=== PATIENT | male | born 1960 | race Two or more races ===

== ENCOUNTER 2021-08-02 11:05 | Outpatient (CLI) | payer OTHER ==
[2021-08-04] MEDS ORDERED: COZAAR100 MG PO (09:46)
[2021-08-04] MEDS ORDERED: [UNRECOGNIZED DRUG - OTHER] PO (10:07)
== END 2021-08-02 11:15 | disposition home or self-care (01) ==
LOC: SONOGRAMA 11:05
PROVIDERS: ATTEND Specialist
DX: R19.09 Other intra-abdominal and pelvic swelling, mass and lump (principal)

== ENCOUNTER 2021-08-05 04:48 | Day surgery (SDC) | payer OTHER ==
[~2021-08-05 04:48] MED LIST: COZAAR100 MG PO; [UNRECOGNIZED DRUG - OTHER] PO
== END 2021-08-05 12:40 | disposition home or self-care (01) ==
LOC: CIR.AMB 04:48
PROVIDERS: ATTEND Specialist
DX: R59.0 Localized enlarged lymph nodes (principal); D59.0 Drug-induced autoimmune hemolytic anemia; Z20.822 Contact with and (suspected) exposure to COVID-19

== ENCOUNTER → 2021-09-06 07:04 | Outpatient (CLI) | payer OTHER | END | disposition home or self-care (01) | LOC: LAB 09-03 06:52 | PROVIDERS: ATTEND Internal Medicine Hematology & Oncology | DX: L04.9 Acute lymphadenitis, unspecified (principal); D89.89 Other specified disorders involving the immune mechanism, not elsewhere classified; D89.82 Autoimmune lymphoproliferative syndrome [ALPS]; C88.8 Other malignant immunoproliferative diseases; I77.6 Arteritis, unspecified ==

== ENCOUNTER 2021-09-15 07:18 | Outpatient (CLI) | payer OTHER | END 2021-09-15 07:32 | disposition home or self-care (01) | LOC: TOM 07:18 | PROVIDERS: ATTEND Internal Medicine Hematology & Oncology | DX: N23 Unspecified renal colic (principal); L04.2 Acute lymphadenitis of upper limb ==

== ENCOUNTER → 2021-12-08 06:54 | Outpatient (CLI) | payer OTHER | END | disposition home or self-care (01) | LOC: LAB 06:54 | PROVIDERS: ATTEND Internal Medicine Hematology & Oncology | DX: D89.89 Other specified disorders involving the immune mechanism, not elsewhere classified (principal); D89.82 Autoimmune lymphoproliferative syndrome [ALPS] ==

== ENCOUNTER 2022-01-17 07:58 | Outpatient (CLI) | payer OTHER | END 2022-01-17 07:59 | disposition home or self-care (01) | LOC: LAB 07:58 | DX: B20 Human immunodeficiency virus [HIV] disease (principal) ==

== ENCOUNTER → 2022-02-10 07:00 | Outpatient (CLI) | payer OTHER | END | disposition home or self-care (01) | LOC: LAB 07:00 | PROVIDERS: ATTEND Internal Medicine Hematology & Oncology | DX: D89.89 Other specified disorders involving the immune mechanism, not elsewhere classified (principal); D89.82 Autoimmune lymphoproliferative syndrome [ALPS] ==

== ENCOUNTER 2022-06-15 08:45 | Outpatient (CLI) | payer OTHER | END 2022-06-15 08:46 | disposition home or self-care (01) | LOC: LAB 08:45 | PROVIDERS: ATTEND Internal Medicine Hematology & Oncology | DX: R74.01 Elevation of levels of liver transaminase levels (principal); C88.8 Other malignant immunoproliferative diseases; D89.82 Autoimmune lymphoproliferative syndrome [ALPS]; L04.2 Acute lymphadenitis of upper limb; D89.89 Other specified disorders involving the immune mechanism, not elsewhere classified ==

== ENCOUNTER → 2022-10-31 07:25 | Outpatient (CLI) | payer OTHER | END | disposition home or self-care (01) | LOC: LAB 07:25 | PROVIDERS: ATTEND Internal Medicine Hematology & Oncology | DX: L04.2 Acute lymphadenitis of upper limb (principal); D89.89 Other specified disorders involving the immune mechanism, not elsewhere classified; D89.82 Autoimmune lymphoproliferative syndrome [ALPS]; D70.8 Other neutropenia; R74.01 Elevation of levels of liver transaminase levels ==

== ENCOUNTER 2023-04-26 13:44 | Outpatient (CLI) | payer OTHER | END 2023-04-26 13:48 | disposition home or self-care (01) | LOC: SONOGRAMA 13:44 | PROVIDERS: ATTEND Specialist/Technologist, Other Nephrology | DX: R10.9 Unspecified abdominal pain (principal); N18.30 Chronic kidney disease, stage 3 unspecified; R31.9 Hematuria, unspecified ==

== ENCOUNTER 2023-04-26 14:28 | Outpatient (CLI) | payer OTHER | END 2023-04-26 14:34 | disposition home or self-care (01) | LOC: LAB 14:28 | PROVIDERS: ATTEND Specialist | DX: N18.9 Chronic kidney disease, unspecified (principal); N40.0 Benign prostatic hyperplasia without lower urinary tract symptoms ==

== ENCOUNTER 2023-07-13 08:50 | Outpatient (CLI) | payer OTHER | END 2023-07-13 08:54 | disposition home or self-care (01) | LOC: SONOGRAMA 08:50 | PROVIDERS: ATTEND General Practice | DX: N40.0 Benign prostatic hyperplasia without lower urinary tract symptoms (principal) ==

== ENCOUNTER 2024-08-20 13:54 | Outpatient (CLI) | payer OTHER | END 2024-08-20 13:59 | disposition home or self-care (01) | LOC: SONOGRAMA 13:54 | PROVIDERS: ATTEND Specialist/Technologist, Other Nephrology | DX: N18.30 Chronic kidney disease, stage 3 unspecified (principal); R31.9 Hematuria, unspecified; R10.9 Unspecified abdominal pain ==

== ENCOUNTER 2025-02-16 15:52 | Emergency (ER) | payer OTHER ==
[~2025-02-16] VITALS: Ht 172.7 cm; Wt 66.2 kg
[2025-02-16] MEDS ORDERED: TOPROL XL25 M1 (16:16)
[2025-02-16] MEDS ORDERED: DICLOFENAC-MIS1 EAC3 (16:20)
[2025-02-16] MEDS ORDERED: NORFLEX100MG PO (16:20)
== END 2025-02-16 18:30 | disposition home or self-care (01) ==
LOC: ER 15:59
DX: M54.50 Low back pain, unspecified (principal); I10 Essential (primary) hypertension